=== PATIENT | female | born 1980 | race African-American/Black ===

== ENCOUNTER 2020-08-27 15:27 | Emergency (ER) | payer OTHER ==
--- NOTE | 2020-08-27 16:03 | Event Note ---
ED Screening Note Date of service: 08/27/20 Time: 16:00 ED Screening Note: 40-year-old [place] female presents to the emergency room complaining of abdominal pains for 3 days. Patient thought it with her menstrual cramps. Patient states that the pain is worse and it feels heavy after she eats with nausea and then has to force herself to vomit. Patient complains of hot and cold sweats. She reports that the pain is crampy in nature. Warm bottle to the abdomen helps with her pain discomfort. She is 2 para 2. Patient denies any no known drug allergies. Has had 2 C[facility]sections. [phone] Photo [employer]oucher [id number] used This initial assessment/diagnostic orders/clinical plan/treatment(s) is/are subject to change based on patients health status, clinical progression and re- assessment by fellow clinical providers in the ED. Further treatment and workup at subsequent clinical providers discretion. Patient/guardian urged not to elope from the ED as their condition may be serious if not clinically assessed and managed. Initial orders include:
[2020-08-27 17:14] LABS: Bacteria,Urine 1+ /HPF (Negative); Bilirubin,Urine NEG (Negative); Blood,Urine LG (Negative); Color,Urine Amber (Yellow); Mucus,Urine 3+ /HPF; Urobilinogen,Urine < 2.0 mg/dL (<2.0)
[2020-08-27 17:28] LABS: Alanine Aminotransferase 12 units/L (7-56); Blood Urea Nitrogen 9 mg/dL (7-17); Calcium 8.7 mg/dL (8.4-10.2); Hemolysis Index 4
[2020-08-27 17:31] LABS: BUN/Creatinine Ratio 18
[2020-08-27] MEDS ORDERED: ACETAMINOPHEN 500 MG TAB PO ONE (19:37)
[2020-08-27] MEDS ORDERED: FAMOTIDINE 20 MG TAB PO ONE (19:37)
[2020-08-27] MEDS ORDERED: ONDANSETRON 4 MG ODT TAB PO ONE (19:37)
[2020-08-27 20:03] LABS: Basophils % (Auto) 0.4 % (0.0-1.8); Eosinophils % (Auto) 0.2 % (0.0-4.3); Hematocrit 31.3 % (30.3-42.9); Hemoglobin 10.7 gm/dl (10.1-14.3); Lymphocytes # (Auto) 1.2 K/mm3 (1.2-5.4); Lymphocytes % (Auto) 9.3 % (13.4-35.0); Mean Corpuscular HGB Conc 34 % (30-34); Mean Corpuscular Volume 89 fl (79-97); Monocytes # (Auto) 0.6 K/mm3 (0.0-0.8); Monocytes % (Auto) 4.4 % (0.0-7.3); Platelet Count 224 K/mm3 (140-440); Red Blood Count 3.51 M/mm3 (3.65-5.03); Red Cell Distribution Width 13.3 % (13.2-15.2)
--- NOTE | 2020-08-27 20:19 | Emergency Department Report ---
ED Abdominal Pain HPI - General Chief Complaint: Abdominal Pain Stated Complaint: ABD PAIN Source: patient Mode of arrival: Ambulatory Limitations: No Limitations - History of Present Illness Initial Comments: Patient is a A0 40-year-old French female with no past medical history presents to the ED with complaint of acute onset persistent diffuse abdominal pain with vaginal bleeding for the last 3 days. Patient states that the pain initially started in the suprapubic area and subsequently became more diffuse especially in the last 12 hours. Patient described the vaginal bleeding as spotting but states that this has been constant. Patient states that she is unsure as to when her last menstrual cycle was stating that she cannot remember. Patient denies dizziness, syncope, nausea, vomiting, diarrhea, cough, sore throat, chest pain, shortness of breath, dysuria, urinary frequency and urgency, vaginal discharge, low back pain, headache or seizures. MD Complaint: abdominal pain, other (Vaginal bleeding) -: Sudden, days(s) (3) Location: diffuse Radiation: suprapubic Migration to: no migration Severity: severe Severity scale (0 -10): 8 Quality: cramping, aching, sharp Consistency: constant Improves With: nothing Worsens With: nothing Associated Symptoms: denies other symptoms, other (Vaginal bleeding). denies: nausea, vomiting, diarrhea, fever, chills, constipation, dysuria, hematemesis, hematochezia, melena, hematuria, anorexia, syncope - Related Data Previous Rx's Medication Instructions Recorded Last Taken Type Acetaminophen [Tylenol] 500 mg PO Q6HR PRN #30 tablet 08/27/20 Unknown Rx Metoclopramide [Reglan] 10 mg PO Q8H PRN #30 tab 08/27/20 Unknown Rx Allergies Allergy/AdvReac Type Severity Reaction Status Date / Time No Known Allergies Allergy Unverified 08/27/20 16:01 ED Review of Systems ROS: Stated complaint: ABD PAIN Other details as noted in HPI Constitutional: denies: chills, fever Eyes: denies: eye pain, eye discharge, vision change ENT: denies: ear pain, throat pain Respiratory: denies: cough, shortness of breath, wheezing Cardiovascular: denies: chest pain, palpitations Endocrine: no symptoms reported Gastrointestinal: abdominal pain (diffuse). denies: nausea, diarrhea Genitourinary: abnormal menses (vaginal bleeding). denies: urgency, dysuria, discharge Musculoskeletal: denies: back pain, joint swelling, arthralgia Skin: denies: rash, lesions Neurological: denies: headache, weakness, paresthesias Psychiatric: denies: anxiety, depression Hematological/Lymphatic: denies: easy bleeding, easy bruising ED Past Medical Hx - Past Medical History Previous Medical History?: No - Surgical History Past Surgical History?: No - Social History Smoking Status: Never Smoker Substance Use Type: None - Medications Home Medications: Home Medications Medication Instructions Recorded Confirmed Last Taken Type Acetaminophen [Tylenol] 500 mg PO Q6HR PRN #30 tablet 08/27/20 Unknown Rx Metoclopramide [Reglan] 10 mg PO Q8H PRN #30 tab 08/27/20 Unknown Rx ED Physical Exam - General Limitations: No Limitations General appearance: alert, in no apparent distress - Head Head exam: Present: atraumatic, normocephalic, normal inspection - Eye Eye exam: Present: normal appearance, PERRL, EOMI Pupils: Present: normal accommodation - ENT ENT exam: Present: normal exam, normal orophraynx, mucous membranes moist, TM's normal bilaterally, normal external ear exam - Neck Neck exam: Present: normal inspection, full ROM - Respiratory Respiratory exam: Present: normal lung sounds bilaterally. Absent: respiratory distress, wheezes, rales, rhonchi, chest wall tenderness, accessory muscle use, decreased breath sounds, prolonged expiratory - Cardiovascular Cardiovascular Exam: Present: regular rate, normal rhythm, normal heart sounds. Absent: systolic murmur, diastolic murmur, rubs, gallop - GI/Abdominal GI/Abdominal exam: Present: soft, tenderness (Palpable diffuse abdominal tenderness, worse in the lower abdomen diffusely), normal bowel sounds. Absent: guarding, rebound, hyperactive bowel sounds, hypoactive bowel sounds, organomegaly - Bi-manual exam: Present: other (Pelvic exam deferred) - Extremities Exam Extremities exam: Present: normal inspection, full ROM, normal capillary refill - Back Exam Back exam: Present: normal inspection, full ROM. Absent: tenderness, CVA tenderness (R), CVA tenderness (L), muscle spasm, paraspinal tenderness, vertebral tenderness - Neurological Exam Neurological exam: Present: alert, oriented X3, CN II-XII intact, normal gait, reflexes normal - Psychiatric Psychiatric exam: Present: normal affect, normal mood - Skin Skin exam: Present: warm, dry, intact, normal color. Absent: rash ED Course Vital Signs 08/27/20 16:00 Temperature 99.0 F Pulse Rate 82 Respiratory 24 Rate Blood Pressure 99/57 O2 Sat by Pulse 98 Oximetry ED Medical Decision Making - Lab Data Result diagrams: 08/27/20 19:45 08/27/20 16:39 - Radiology Data Radiology results: report reviewed, image reviewed Findings [facility] [address] [place] [address] Ultrasound Report Signed Patient: ALFA SHORT MR#: [id number] : 1980 Acct:[id number] Age/Sex: 40 / F ADM Date: 08/27/20 Loc: ED Attending Dr: Ordering Physician: MARK ANTHONY BUENO Date of Service: 08/27/20 Procedure(s): US OB <= 14 weeks fetus Accession Number(s): [id number] cc: MARK ANTHONY BUENO ULTRASOUND OBSTETRIC INDICATION / CLINICAL INFORMATION: Abdominal pain, vag bleeding, . Clinical Gestational Age (GA: unknown TECHNIQUE: Transabdominal. COMPARISON: None available. FINDINGS: No definitive intrauterine is noted. The uterus measures 7.7 x 4.4 x 5.3 cm with endometrial thickness which measures 10 mm. ADNEXA: Cystic lesion of the left ovary measures 1.2 x 0.9 x 1.5 cm. FREE FLUID: None. ADDITIONAL FINDINGS: None. IMPRESSION: 1. No definitive intrauterine is noted. This may be secondary to early dates. Close ultrasound and clinical follow-up is recommended. 2. Cystic lesion of the left ovary likely represents a corpus luteal cyst. Signer Name: Johnny Blanton MD Signed: 08/27/2020 10:37 PM Workstation Name: [id number] Transcribed By: Dictated By: JOHNNY BLANTON Electronically Authenticated By: JOHNNY BLANTON Signed Date/Time: 08/27/202236 DD/ 33 TD/TT: - Medical Decision Making This is a A0 40-year-old French female with no past medical history presents to the ED with complaint of acute onset persistent diffuse abdominal pain with vaginal bleeding for the last 3 days. Patient states that the pain initially started in the suprapubic area and subsequently became more diffuse especially in the last 12 hours. Patient described the vaginal bleeding as spotting but states that this has been constant. Patient states that she is unsure as to when her last menstrual cycle was stating that she cannot remember. In the ED, patient is alert and oriented x3 and is not in any distress. Lab test results were reviewed and showed acute leukocytosis of 13,100 and hCG quant of 8040. Urinalysis showed significant hematuria. Patient was treated for pain in the ED and transvaginal ultrasound showed no definitive intrauterine is noted. This may be secondary to early dates. Close ultrasound and clinical follow-up is recommended. It also showed cystic lesion of the left ovary likely represents a corpus luteal cyst. On reevaluation, patient's pain is well controlled medications. Patient was discharged home and advised to maintain a complete pelvic rest, and take Tylenol as needed and follow-up with [facility] physician or return to the ED in 2 days for serial hCG quant studies repeat to ascertain the viability of the . Patient was also advised to avoid any heavy lifting, strenuous physical or sexual activities. Patient was otherwise advised to return to the ED immediately if symptoms get worse. - Differential Diagnosis Threatened miscarriage; ovarian cyst; UTI; subchorionic bleed; GERD Critical care attestation.: If time is entered above; I have spent that time in minutes in the direct care of this critically ill patient, excluding procedure time. ED Disposition Clinical Impression: Threatened miscarriage in early , Abdominal pain during in first trimester, Left ovarian cyst Disposition: DC-01 TO HOME OR SELFCARE Is pt being admited?: No Does the pt Need Aspirin: No Condition: Stable Instructions: Abdominal Pain (ED), Threatened Miscarriage, [id number], Abdominal Pain During , [id number], Vaginal Bleeding During Pregnan cy, First Trimester, [id number], Ovarian Cyst, [id number] Additional Instructions: Lab test results were reviewed and showed a positive with an hCG quant of 8040. Transvaginal ultrasound did not show any intrauterine but based on the hCG quant studies the may be too early. Therefore take medications, Tylenol, for pain with food, maintain a complete pelvic rest with no heavy or strenuous physical activity or sexual activities. Return to the ED or follow-up with your [facility] physician within 48 hours for further serial hCG quant repeat test to ascertain the viability of the . Otherwise return to the ED immediately if symptoms get worse. Prescriptions: Acetaminophen [Tylenol] 500 mg PO Q6HR PRN #30 tablet PRN Reason: Pain , Severe (7-10) Metoclopramide [Reglan] 10 mg PO Q8H PRN #30 tab PRN Reason: Nausea Referrals: TACOS LEES MD [Staff Physician] - 3-5 Days Time of Disposition: 23:52 Print Language: SALVADOREAN
--- NOTE | 2020-08-27 22:42 | Ultrasound Report ---
ULTRASOUND OBSTETRIC INDICATION / CLINICAL INFORMATION: Abdominal pain, vag bleeding, . Clinical Gestational Age (GA: unknown TECHNIQUE: Transabdominal. COMPARISON: None available. FINDINGS: No definitive intrauterine is noted. The uterus measures 7.7 x 4.4 x 5.3 cm with endometria l thickness which measures 10 mm. ADNEXA: Cystic lesion of the left ovary measures 1.2 x 0.9 x 1.5 cm. FREE FLUID: None. ADDITIONAL FINDINGS: None. IMPRESSION: 1. No definitive intrauterine is noted. This may be secondary to early dates. Close ultraso und and clinical follow-up is recommended. 2. Cystic lesion of the left ovary likely represents a corpus luteal cyst. Signer Name: Johnny Martinez MD Signed: 08/27/2020 10:37 PM Workstation Name: [id number]
[2020-08-28 03:02] VITALS: BP 114/61
== END 2020-08-28 00:20 | disposition home or self-care (01) ==
LOC: ED 15:27
DX: O20.0 Threatened abortion (principal); O26.891 Other specified pregnancy related conditions, first trimester; R10.9 Unspecified abdominal pain; N83.202 Unspecified ovarian cyst, left side; Z79.899 Other long term (current) drug therapy; Z3A.01 Less than 8 weeks gestation of pregnancy
CPT/HCPCS: 36415; 76801; 80053; 81001; 83690; 84702; 85025; 86850; 86900; 86901; Q0162